=== PATIENT | female | born 1985 | race Caucasian/White ===

== ENCOUNTER 2016-12-18 00:07 | Emergency (ER) | payer SELFPAY ==
[~2016-12-18] VITALS: Ht 154.9 cm; Wt 49.4 kg
[2016-12-18 00:10] VITALS: BP 138/99
[2016-12-18 01:30] LABS: BARBITURATES NEG (NEG); BENZODIAZEPINES POS (NEG); CANNABINOIDS NEG (NEG); COCAINE NEG (NEG); ETHANOL, URINE NEG (NEG); METHADONE NEG (NEG); OPIATES POS (NEG); PHENCYCLIDINE NEG (NEG)
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
[2016-12-18 01:39] LABS: BASO % 1 % (0-3); EOS % 1 % (0-3); HEMATOCRIT 36.3 % (36.0-47.0); HEMOGLOBIN 12.4 g/dL (12.0-15.5); LYMPH # 3.1 x10^3/uL (1.0-4.8); LYMPH % 30 % (24-48); MEAN CORPUSCULAR HEMOGLOBIN 33 pg (25-35); MEAN CORPUSCULAR HGB CONC 34 g/dL (31-37); MEAN CORPUSCULAR VOLUME 98 fL (79-100); MONO % 9 % (0-9); NEUT % 59 % (31-73); PLATELET COUNT 287 x10^3/uL (140-400); RED BLOOD COUNT 3.73 x10^6/uL (3.50-5.40); RED CELL DISTRIBUTION WIDTH 12.2 % (11.5-14.5); WHITE BLOOD COUNT 10.3 x10^3/uL (4.0-11.0)
[2016-12-18 01:43] LABS: BILIRUBIN,URINE SMALL (NEG); GLUCOSE,URINE NEGATIVE (NEG); NITRITE,URINE POSITIVE (NEG); PROTEIN,URINE NEGATIVE (NEG-TRACE); UROBILINOGEN,URINE 0.2 mg/dL (0.2 mg/dL)
[2016-12-18 01:45] LABS: NEG OBC UR NEG; POS OBC UR POS
[2016-12-18 01:50] LABS: BACTERIA,URINE MANY /HPF (0-FEW); CALCIUM 9.1 mg/dL (8.5-10.1); CREATININE 0.8 mg/dL (0.6-1.0); GFR 83.1; POTASSIUM 3.3 mmol/L (3.5-5.1); RBC,URINE OCC /HPF (0-2); SQUAMOUS EPITHELIAL CELL,UR FEW /LPF
[2016-12-18] MEDS ORDERED: ACETAMINOPHEN 500 MG TABLET PO ONE (02:00)
[2016-12-18] MEDS ORDERED: NAPROXEN 250 MG TABLET PO ONE (02:00)
[2016-12-18] MEDS ORDERED: IV NORMAL SALINE 1000ML BAG 1,000 ML IV SCH (02:00)
--- NOTE | 2016-12-18 06:46 | EKG ---
[facility] [address] [place] [address] Test Date: 2016-12-18 Test Time: 00:31:54 Pat Name: NATALIA RICHMOND Department: Room: Gender: F [employer] Packer: : [id number] Requested By: JOHNNY CUMMINS Order Number: [id number] Reading MD: Shayna Olivarez Measurements Intervals [place] Rate: 102 P: 127 MT: 130 QRS: -152 QRSD: 96 T: 118 QT: 318 QTc: 418 Interpretive Statements SINUS RHYTHM ABNORMAL RIGHT SUPERIOR AXIS DEVIATION INCOMPLETE RIGHT BUNDLE BRANCH BLOCK CONSIDER RIGHT VENTRICULAR HYPERTROPHY RI6.01 Unconfirmed report No previous ECG available for comparison Electronically Signed On 12-23-2016 14:36:48 [employer] by Shayna Olivarez
--- NOTE | 2016-12-18 07:40 | RAD ---
Indication hip pain. AP and lateral views of the right femur were obtained. The proximal femur is is not included on the lateral view. There are sclerotic changes involving the neck and head of the right femur most compatible with a previous pinning procedure. Clinical correlation advised. An acute bony finding is not seen. IMPRESSION: No acute bony finding
--- NOTE | 2016-12-18 07:42 | RAD ---
Indication chest pain. AP views of the chest were obtained. No prior imaging of the chest is available. The heart, pulmonary vessels and mediastinum appear normal. The lungs are clear. No pleural fluid or pneumothorax is seen and the visualized bony structures appear grossly intact. IMPRESSION: No acute or focal process seen in the chest
== END 2016-12-18 03:10 | disposition left against medical advice (07) ==
LOC: ER 00:07
DX: R07.9 Chest pain, unspecified (principal); R06.02 Shortness of breath; N39.0 Urinary tract infection, site not specified; E78.00 Pure hypercholesterolemia, unspecified; E03.9 Hypothyroidism, unspecified; F15.10 Other stimulant abuse, uncomplicated; Z88.6 Allergy status to analgesic agent
CPT/HCPCS: 36415; 71010; 73552; 80048; 81001; 81025; 83605; 84484; 85027; 85379; 87086; 87186; 93005; 99285; G0481; J7030